=== PATIENT | female | born 1940 | race Caucasian/White ===

== ENCOUNTER 2024-07-07 10:21 | Emergency (ER) | payer MEDICARE, BC ==
[~2024-07-07] VITALS: Ht 162.6 cm; Wt 57.2 kg
[~2024-07-07 10:21] MED LIST: AMLODIPINE BESYL5 MG PO; ATORVASTATIN CA20 MG PO; ENBREL50 MG/1 ML INJ; FOLIC ACID0.8 MG PO; GABAPENTIN100 MG PO; LEVOFLOXACIN500 MG PO; METHOTREXATE2.5 MG PO; METRONIDAZOLE500 MG PO; RESTASIS1 EACH OU; SERTRALINE HCL50 MG PO; TOLTERODINE TART2 M1 PO
[2024-07-07 10:45] VITALS: TEMP 98.8
[2024-07-07] MEDS ORDERED: SODIUM CHLORIDE FLUSH 10 ML SYR IV PRN (11:15)
[2024-07-07 11:40] LABS: BASOPHILS # (AUTO) 0.1 (0.0-0.1); BASOPHILS % 0.6 % (0.0-1.0); LYMPHOCYTES # (AUTO) 0.5 (1.0-3.2); LYMPHOCYTES % 4.9 % (18.0-39.1); MEAN CORPUSCULAR HEMOGLOBIN 34.4 pg (28-32); MEAN CORPUSCULAR HGB CONC 32.1 g/dL (31-35); MEAN CORPUSCULAR VOLUME 106.9 fL (81-99); MONOCYTES # (AUTO) 0.9 (0.2-0.8); MONOCYTES % 8.9 % (4.4-11.3); NEUTROPHILS # (AUTO) 8.2 (2.1-6.9); NEUTROPHILS % 84.5 % (38.7-80.0); PLATELET COUNT 249 x10e3/uL (140-360); RED BLOOD COUNT 2.62 x10e6/uL (3.6-5.1); RED CELL DISTRIBUTION WIDTH 18.5 % (11.7-14.4); WHITE BLOOD COUNT 9.74 x10e3/uL (4.8-10.8)
[2024-07-07 12:16] LABS: ALBUMIN 3.6 g/dL (3.5-5.0); ANION GAP 17.5 mmol/L (8-16); BILIRUBIN,TOTAL 0.8 mg/dL (0.2-1.2); CREATININE, SERUM 1.03 mg/dL (0.57-1.11); POTASSIUM 4.5 mmol/L (3.5-5.1); TOTAL PROTEIN 7.1 g/dL (6.5-8.1)
[2024-07-07 12:31] LABS: TROPONIN I 4.907 ng/mL (0-0.300)
[2024-07-07 12:32] LABS: CALCIUM 9.8 mg/dL (8.4-10.2)
[2024-07-07] MEDS ORDERED: SODIUM CHLORIDE 0.9% 100 ML ONE (12:37)
[2024-07-07] MEDS ORDERED: IOPAMIDOL 370 MG/ML 100 ML INFUS..BTL INJ ONE (12:37)
[2024-07-07] MEDS: Morphine 4mg INJECTION 4 MG/ML INJ IV ONE (14:11)
[2024-07-07] MEDS: ONDANSETRON HCL INJ 2MG/ML 2ML 2 MG/ML VIAL IV STA (14:11)
[2024-07-07] MEDS: ASPIRIN 300 MG SUPP PR STA (14:12)
[2024-07-07] MEDS: SODIUM CHLORIDE 0.9% 1000ML 1,000 ML IV ONE (14:12)
[2024-07-07] MEDS ORDERED: NOREPINEPHRINE 8 MG/D5W 250 ML 250 ML IV SCH (14:30)
[2024-07-07] MEDS: ENOXAPARIN SOD INJ 60 MG/0.6 ML SYR SC SCH (14:37)
[2024-07-07] MEDS: ASPIRIN 81 MG CHEW TAB PO ONE (14:37)
[2024-07-07] MEDS: CLOPIDOGREL BISULFATE 75 MG TAB PO ONE (14:38)
[2024-07-07 15:42] VITALS: PULSE 63; RESP 18; O2SAT 97
== END 2024-07-07 16:39 | disposition short-term general hospital (02) ==
LOC: ER 10:59
DX: R07.9 Chest pain, unspecified (principal); I21.4 Non-ST elevation (NSTEMI) myocardial infarction; J90 Pleural effusion, not elsewhere classified; I51.7 Cardiomegaly; I10 Essential (primary) hypertension; E78.5 Hyperlipidemia, unspecified; M54.9 Dorsalgia, unspecified; G89.29 Other chronic pain; R94.31 Abnormal electrocardiogram [ECG] [EKG]
CPT/HCPCS: 36415; 71045; 71275; 74174; 80053; 83880; 84484; 85025; 93005; 99284; J1650; J2270; J2405; J7030; J7050; Q9967